=== PATIENT | female | born 1985 | race Caucasian/White ===

== ENCOUNTER → 2016-12-22 | Day surgery (SDC) | payer OTHER | END | disposition home or self-care (01) | LOC: FRADUS-SUR 13:12 | PROVIDERS: ATTEND Surgery | PROC: 07B53ZX Excision of Right Axillary Lymphatic, Percutaneous Approach, Diagnostic (ICD-10-PCS; principal; 2016-12-22) | PROC: BH47ZZZ Ultrasonography of Upper Extremity (ICD-10-PCS; 2016-12-22) | DX: R59.0 Localized enlarged lymph nodes (principal) | CPT/HCPCS: 19083; 38505; 76942; 87899; A4648 ==

== ENCOUNTER 2018-01-18 12:16 | Day surgery (SDC) | payer OTHER ==
[2018-01-04 15:22] VITALS: BMI 25.7
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
[2018-01-18] MEDS ORDERED: PROPOFOL 20 ML ONE ×3 (12:57→13:07)
[2018-01-18] MEDS ORDERED: MIDAZOLAM HCL 2 MG/2 ML SINGLE DOSE VIAL ONE (12:58)
[2018-01-18] MEDS ORDERED: SUCCINYLCHOLINE CHLORIDE 200 MG/10 ML VIAL ONE (13:07)
[2018-01-18] MEDS ORDERED: LIDOCAINE HCL/PF 2% SDV 5ML VIAL ONE (13:08)
[2018-01-18] MEDS ORDERED: ONDANSETRON 4 MG/2 ML VIAL ONE (13:08)
[2018-01-18] MEDS ORDERED: KETOROLAC TROMETHAMINE 30 MG/1 ML VIAL ONE (13:08)
[2018-01-18] MEDS ORDERED: LIDOCAINE HCL 2% JELLY (5 ML/TUBE) ONE (13:08)
[2018-01-18] MEDS ORDERED: DEXAMETHASONE SOD PHOSPHATE 4 MG/1 ML VIAL ONE (13:08)
[2018-01-18] MEDS ORDERED: BUPIVACAINE HCL 0.25% 125 MG/50 ML VIAL ONE ×3 (13:19→14:59)
[2018-01-18] MEDS ORDERED: LIDOCAINE HCL 1%, 10 MG/ML (20ML VIAL) ONE (13:19)
[2018-01-18] MEDS ORDERED: ceFAZolin SODIUM 1 GM VIAL ONE ×2 (13:20→14:42)
[2018-01-18] MEDS ORDERED: ONDANSETRON 4 MG/2 ML VIAL IVPUSH PRN ×2 (14:33→15:26)
[2018-01-18] MEDS ORDERED: oxyCODONE HCL 5 MG TABLET PO PRN (14:33)
[2018-01-18] MEDS ORDERED: LIDOCAINE HCL 1%, 10 MG/ML (50 mL VIAL) IJ ONE (14:43)
[2018-01-18] MEDS ORDERED: LACTATED RINGERS SOLUTION 1,000 ML IV SCH (14:45)
[2018-01-18] MEDS ORDERED: BUPIVACAINE HCL/PF 0.25% (2.5MG/ML) 10 ML VIAL IJ ONE (15:16)
[2018-01-18] MEDS ORDERED: KETOROLAC TROMETHAMINE 30 MG/1 ML VIAL IVPUSH PRN (15:26)
[2018-01-18] MEDS ORDERED: DEXTROSE 5%-0.45% SALINE 1,000 ML IV SCH (15:30)
[2018-01-18] MEDS ORDERED: oxyCODONE HCL 5 MG TABLET ONE (16:28)
[2018-01-18 18:09] VITALS: BP 113/82; PULSE 87; TEMP 98
--- NOTE | 2018-01-25 09:49 | OP ---
DATE OF OPERATION: 01/18/2018 PREOPERATIVE DIAGNOSIS: Right axillary adenopathy. POSTOPERATIVE DIAGNOSIS: Right axillary adenopathy. PROCEDURE: Right axillary excisional node biopsy. ANESTHESIA: IV sedation with local. ATTENDING SURGEON: Raj Evans MD CONTROL ELECTRICIAN: ASPEN Stark ESTIMATED BLOOD LOSS: Minimal. COMPLICATIONS: None. PROCEDURE: Patient was made aware of the risks and benefits of the procedure and consented. She was placed in the supine position, and after IV sedation was administered, the operative site was prepped and draped in the usual sterile fashion. Then 1% lidocaine mixed in a 1:1 ratio with 0.25% bupivacaine was used for local anesthesia. A curvilinear incision was made in the right axilla using blunt and sharp dissection. Tissues were dissected down to the enlarged lymph node. This was bluntly and sharply excised and submitted fresh for lymphoma protocol. The wound was copiously irrigated with normal saline, hemostasis maintained by electrocautery. The wound was then closed with deep 3-0 Vicryl followed by a running subcuticular 4-0 Monocryl. Steri-Strips and a sterile bandage were applied. The patient, having tolerated the procedure well, was transferred to the recovery room in excellent condition. RAJ EVANS M.D. [id number]
--- NOTE | 2018-01-29 10:47 | PATH ---
Surgical Pathology Report Patient Name: ANAND SANTO Med. Rec. #: [id number] /Age/Gender: 1985 (Age: 32) / F Account: [id number] Location: [facility] Taken: 01/18/2018 Received: 01/18/2018 Reported: 01/29/2018 Physicians: Joanna Evans M.D. Specimen(s) Received RIGHT AXILLARY LYMPH NODE Clinical History Right axillary adenopathy, r/o lymphoma Final Diagnosis Case sent to [facility], [place], [place] for ancillary studies and consultation and the following report was rendered there by Dr. 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 SEE COMMENT. Comment: All 7 blocks show similar features. The tata architecture is intact. There are numerous secondary follicles scattered throughout the tata parenchyma. Some of the larger follicles show involution of mantle zones. There is no cytologic atypia. Immunohistochemical studies performed on block 2, highlight CD20 positive, PAX-5 positive B-cell follicles. They contain CD10 positive, BCL-6 positive, BCL-2 negative germinal centers. They are surrounded by IgD positive mantle zones. Some of the follicles show an increase in IgD positivity within germinal center areas consistent with PTGC. CD30 is negative. CD15 highlights rare granulocytes. CD23 and CD21 highlight follicular dendritic cell meshworks. MUM-1 highlight scattered plasma cells, which are polyclonal by kappa and lambda staining. Morphologic and immunohistochemical evidence diagnostic of a lymphoproliferative disorder are not observed. These findings correlate with the flow cytometric analysis. Flow cytometric analysis, performed at [facility], [place], [place], shows the following results: Lymph node, right axilla (cell suspension): No immunophenotypic evidence of a lymphoproliferative disorder. Phenotype: Based on light scatter characteristics and 7AAD negativity, approximately 87% of the total cells in the specimen are viable. Of the viable cells approximately 69% are T-cells and 29% B-cells. The B-cells are polyclonal with no atypical antigen expression. The T-cells express all watson-T-cell antigens tested with CD4 > CD8 (ratio= 4.2:1). Approximately 1% of the cells express CD13/CD33, consistent with myeloid/monocytic cells. There is no significant [id number] population. Case discussed with Dr. Evans by Dr. James on 01/25/18. Electronically Signed Tara James M.D. Gross Description Received fresh, labeled "right axillary node," is a 4.2 x 2.5 x 2.0 cm todd-pink, intact lymph node. A shared services representative portion is placed in RPMI solution and sent to reference lab for flow cytometry. The remainder of the specimen is sectioned and entirely submitted in 7 cassettes. 01/18/2018 saudi01/18/2018
== END 2018-01-18 18:00 | disposition home or self-care (01) ==
LOC: FASU 12:16
PROVIDERS: ATTEND Surgery Surgical Oncology
PROC: 07B50ZX Excision of Right Axillary Lymphatic, Open Approach, Diagnostic (ICD-10-PCS; principal; 2018-01-18 14:43)
DX: R59.0 Localized enlarged lymph nodes (principal)
CPT/HCPCS: 84703; 88307-TC; 94760